=== PATIENT | female | born 2000 | race Caucasian/White ===

== ENCOUNTER 2021-02-27 13:22 | Outpatient (CLI) | payer OTHER, SELFPAY ==
--- NOTE | ~2021-02-27 | US_ITS ---
EXAMINATION: US pelvic complete w TV DATE: 02/27/2021 14:06 INDICATION: Ovarian cyst, abnormal bleeding TECHNIQUE: Multiple transabdominal and endovaginal sonographic images of the pelvis were obtained. COMPARISON: None. FINDINGS: The uterus measures 6.1 x 3.0 x 3.9 cm. The endometrial complex measures 5 mm. The right ov nedra measures 1 x 2.2 x 2.1 cm and contains a 1.2 cm cyst. The left ovary measures 3.1 x 1.9 x 1.9 cm. There is normal vascular flow in the ovaries. There is a small volume of likely physiologic free flu id in the pelvis. IMPRESSION: 1. 1.2 cm right ovarian cyst considered within normal limits for a reproductive age female. Reviewed, dictated and finalized at location [facility]. [facility] [employer]CH[employer]
== END 2021-02-27 13:23 | disposition home or self-care (01) ==
LOC: ANHIMG 13:23
PROVIDERS: PCP Pediatrics; Visit Provider Obstetrics & Gynecology Gynecology
DX: N83.201 Unspecified ovarian cyst, right side (principal); N93.9 Abnormal uterine and vaginal bleeding, unspecified
CPT/HCPCS: 76830; 76856

== ENCOUNTER 2021-09-05 08:28 | Emergency (ER) | payer OTHER, MEDICAID, SELFPAY ==
[2021-09-05 08:40] VITALS: BP 120/57; PULSE 104; RESP 18; TEMP 37.8; O2SAT 99
--- NOTE | 2021-09-05 08:54 | ED.URI ---
HPI - URI/Sore Throat General Stated Complaint: chest pain/sore throat/wiggins Time Seen by Provider: 09/05/21 08:54 Source: patient Mode of arrival: ambulatory Limitations: no limitations History of Present Illness HPI Narrative: 20 yo F presents with c/o nasal congestion, cough, fatigue since yesterday. Tested positive for covid 19 yesterday on home test. Telegraphic Service Dispatcher wants her to have official test at an office and doctors statement . Pt is vaccinated. Approx. 19 wks . Denies CP and SOB. Has vomited a few times past 2 days but is able to keep down some food and fluids. 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 All systems reviewed and negative except as noted above. Related Data Allergies Allergy/AdvReac Type Severity Reaction Status Date / Time No Known Allergies Allergy Unverified 10/28/16 13:12 Review of Systems Review of Systems: CONSTITUTIONAL: Denies fever, chills, or sweats. Reports fatigue. EYES: Denies visual changes, redness, or discharge. ENT: Reports rhinorrhea, congestion. Denies sore throat, or otalgia. CARDIOVASCULAR: Denies chest pain, palpitations, or edema. RESPIRATORY: Reports cough. Denies dyspnea. GASTROINTESTINAL: Denies abdominal pain. Denies nausea, vomiting. GENITOURINARY: Denies dysuria or hematuria. SKIN: Denies rash or itching. MUSCULOSKELETAL: Denies back pain, joint pain, or myalgia. NEUROLOGIC: Denies headache, numbness, or weakness. PSYCHIATRIC: Denies anxiety or depression. All other systems reviewed are negative, except as documented in HPI. PMFSH Comments At time of signature, agree with nursing past medical, surgical, social and family history. There is no relevant family history pertinent to the presenting complaint. Exam Narrative: GENERAL: This is a well-nourished, well-developed patient, in no apparent distress. HEAD: normocephalic, atraumatic. EYES: PERRL. Sclera clear/white. Vision is grossly intact. EARS: External ears normal, auditory canals clear and without drainage, TMs normal without perforation. Hearing grossly intact. NOSE: External nose normal with clear nasal drainage. THROAT: Mucous membranes moist, posterior pharynx clear. NECK: Neck supple, non-tender without lymphadenopathy, masses or thyromegaly. CARDIOVASCULAR: Regular rate and rhythm without murmurs, gallops, or rubs. RESPIRATORY: Clear to auscultation. Breath sounds equal bilaterally. No wheezes, rales, or rhonchi. SKIN: warm, Dry, intact with no suspicious lesions or rash, good texture and turgor. NEURO: awake, alert, and oriented to person, place and time. There were no obvious focal neurologic abnormalities. EXTREMITIES: No joint tenderness, effusion, or edema noted. Course Course Level of Care: Express Care Visit Vital Signs Vital signs: Vital Signs Temperature 37.8 C H 09/05/21 08:40 Pulse Rate 104 H 09/05/21 08:40 Respiratory Rate 18 09/05/21 08:40 Blood Pressure 120/57 L 09/05/21 08:40 Pulse Oximetry 99 09/05/21 08:40 Oxygen Delivery Room Air 09/05/21 08:40 Temperature 37.8 C H 09/05/21 08:40 Pulse Rate 104 H 09/05/21 08:40 Respiratory Rate 18 09/05/21 08:40 Blood Pressure 120/57 L 09/05/21 08:40 Pulse Oximetry 99 09/05/21 08:40 Oxygen Delivery Room Air 09/05/21 08:40 Reviewed MDM - URI/Sore Throat MDM Narrative Medical decision making narrative: Patient is aware of diagnosis, understands and agrees to treatment plan. Anticipatory guidance given. Patient agrees to follow-up as directed and is aware of reasons to seek care at the emergency department. Portions of this record may have been created with voice recognition software Differential Diagnosis Differential diagnosis: Likely upper respiratory infection, sinusitis, viral infection, influenza and other (COVID) Discharge Plan Discharge Clinical Impression: COVID-19 Patient Disposition: Home, Self-Care Condition: Stable Instructions: COVID-19 (Coronavirus Disease 2019) (ED) Addit
== END 2021-09-05 09:20 | disposition home or self-care (01) ==
PROVIDERS: Emergency Provider Nurse Practitioner Family
DX: O98.512 Other viral diseases complicating pregnancy, second trimester (principal); Z3A.19 19 weeks gestation of pregnancy; U07.1 COVID-19
CPT/HCPCS: 87426; 99212; C9803; G0463

== ENCOUNTER 2022-06-18 17:34 | Emergency (ER) | payer OTHER, MEDICAID, SELFPAY ==
[2022-06-18 17:40] VITALS: BP 126/65; PULSE 94; RESP 18; TEMP 37.3; O2SAT 100
--- NOTE | 2022-06-18 17:44 | ED.GENADULT ---
HPI - General Adult General Chief complaint: Urogenital-Female Stated complaint: poss uti Source: patient and RN notes reviewed History of Present Illness HPI narrative: 21 yo F presents to urgent care with complaints of lower abdominal pains, bilateral lower back pains, bilateral flank pain, and dyspareunia. Pt states she has been having these symptoms ever since she had her baby 5 months ago but the last week, her symptoms have exacerbated. Pt states she is unable to sit down without pain. Pt reports some nausea. Pt reports vaginal discharge and foamy urine. Pt was recently treated with Flagyl and Diflucan approximately 2 weeks ago. Denies any vomiting, constipation, dysuria, genital blisters or lesions, diarrhea, chest pain, or SOB. Related Data Allergies Allergy/AdvReac Type Severity Reaction Status Date / Time No Known Allergies Allergy Verified 06/18/22 17:43 Review of Systems Review of Systems: Pertinent positives and pertinent negatives per HPI. PMFSH Comments At the time of my signature, I reviewed and agree with the nursing past medical, surgical, social, and family history. There is no relevant family history pertinent to the patient complaint. Exam Narrative: GENERAL: This is a well-nourished, well-developed patient, in no apparent distress. HEAD: normocephalic, atraumatic. EYES:Sclera clear/white. Vision is grossly intact. EARS: External ears normal, auditory canals clear and without drainage. Hearing grossly intact. NOSE: External nose normal with no obvious nasal discharge, nares without redness, no rhinorrhea. THROAT: Mucous membranes moist, posterior pharynx clear. NECK: Neck supple, non-tender without lymphadenopathy, masses or thyromegaly. CARDIOVASCULAR: Regular rate . RESPIRATORY: Clear to auscultation. Breath sounds equal bilaterally. No wheezes, rales, or rhonchi. GASTROINTESTINAL: Abdomen soft, Tender to mid lower and left lower abdomen. SKIN: warm, intact with no suspicious lesions or rash, good texture and turgor. NEURO: awake, alert, and oriented to person, place and time. There were no obvious focal neurologic abnormalities. Course Course Level of Care: Express Care Visit Vital Signs Vital signs: Vital Signs Temperature 99.2 F 06/18/22 17:40 Pulse Rate 94 06/18/22 17:40 Respiratory Rate 18 06/18/22 17:40 Blood Pressure 126/65 06/18/22 17:40 Pulse Oximetry 100 06/18/22 17:40 Oxygen Delivery Room Air 06/18/22 17:40 Temperature 99.2 F 06/18/22 17:40 Pulse Rate 94 06/18/22 17:40 Respiratory Rate 18 06/18/22 17:40 Blood Pressure 126/65 06/18/22 17:40 Pulse Oximetry 100 06/18/22 17:40 Oxygen Delivery Room Air 06/18/22 17:40 Reviewed Medical Decision Making Vital Signs Vital Signs: Vital Signs Temperature 99.2 F 06/18/22 17:40 Pulse Rate 94 06/18/22 17:40 Respiratory Rate 18 06/18/22 17:40 Blood Pressure 126/65 06/18/22 17:40 Pulse Oximetry 100 06/18/22 17:40 Oxygen Delivery Room Air 06/18/22 17:40 Temperature 99.2 F 06/18/22 17:40 Pulse Rate 94 06/18/22 17:40 Respiratory Rate 18 06/18/22 17:40 Blood Pressure 126/65 06/18/22 17:40 Pulse Oximetry 100 06/18/22 17:40 Oxygen Delivery Room Air 06/18/22 17:40 Lab Data Labs: UCG Bedside Result Negative Reference Range: Negative Urine Glucose Negative Reference Range: Negative Urine Bilirubin Negative Reference Range: Negative Urine Ketone Negative Reference Range: Negative Urine Specific [place] 1.015 Reference Range:1.001-1.035 Urine Blood Negative
== END 2022-06-18 18:21 | disposition home or self-care (01) ==
PROVIDERS: Emergency Provider Nurse Practitioner Family
DX: R10.30 Lower abdominal pain, unspecified (principal); R10.32 Left lower quadrant pain; Z86.16 Personal history of COVID-19
CPT/HCPCS: 81003; 81025; 99212; G0463

== ENCOUNTER 2022-09-09 12:53 | Outpatient (CLI) | payer OTHER, MEDICAID, SELFPAY | END 2022-09-09 12:54 | disposition home or self-care (01) | LOC: ANHBWCAUD 12:54 | DX: R42 Dizziness and giddiness (principal) | CPT/HCPCS: 92557; 92567 ==

== ENCOUNTER 2022-11-22 16:35 | Emergency (ER) | payer OTHER, MEDICAID, SELFPAY ==
--- NOTE | 2022-11-22 16:42 | ED.URI ---
HPI - URI/Sore Throat General Chief Complaint: Upper Respiratory Infection Stated Complaint: congestion/aches/ears Source: patient and RN notes reviewed History of Present Illness HPI Narrative: 21 yo F presents to urgent care with complaints of body aches, bilateral ear pain, and SHETTY that started today. Pt states since she was bringing her daughter in, she would be seen. Denies any fevers, chills, sore throat, chest pain, SOB, N/V/D. Related Data Home Medications Medication Instructions Recorded Confirmed citalopram 20 mg tablet mg 11/22/22 norethindrone 1.5 mg-ethinyl tablet 11/22/22 estradiol 30 mcg(21)/iron 75 mg(7) tablet ( FE .08/12 (28)) Allergies Allergy/AdvReac Type Severity Reaction Status Date / Time No Known Allergies Allergy Verified 06/18/22 17:43 Review of Systems Review of Systems: Pertinent positives and pertinent negatives per HPI. PMFSH Comments At the time of my signature, I reviewed and agree with the nursing past medical, surgical, social, and family history. There is no relevant family history pertinent to the patient complaint. Exam Narrative: GENERAL: This is a well-nourished, well-developed patient, in no apparent distress. HEAD: normocephalic, atraumatic. EYES: Sclera clear/white. Vision is grossly intact. EARS: External ears normal, auditory canals clear and without drainage, TMs normal without perforation. Hearing grossly intact. NOSE: External nose normal with no obvious nasal discharge, nares without redness, no rhinorrhea. THROAT: Mucous membranes moist, posterior pharynx clear. NECK: Neck supple, non-tender without lymphadenopathy, masses or thyromegaly. CARDIOVASCULAR: Regular rate and rhythm without murmurs, gallops, or rubs. RESPIRATORY: Clear to auscultation. Breath sounds equal bilaterally. No wheezes, rales, or rhonchi. SKIN: warm, intact with no suspicious lesions or rash, good texture and turgor. NEURO: awake, alert, and oriented to person, place and time. There were no obvious focal neurologic abnormalities. EXTREMITIES: No clubbing, cyanosis, or edema. No joint tenderness, effusion, or edema noted. BACK: Nontender without deformity or crepitus. No flank tenderness. Course Course Level of Care: Express Care Visit Vital Signs Vital signs: Reviewed MDM - URI/Sore Throat MDM Narrative Medical decision making narrative: Viral illness may last between 7-21 days; antibiotics do not cure viral illness and are NOT recommended at this time. Also, recommend symptomatic treatment includes: rest, fluids, and increase humidity of the air at home. Recommend Acetaminophen as directed on the bottle to reduce fever, pain, headache. Please schedule a follow-up visit with your personal physician for further evaluation and treatment within 3-5days. If your symptoms persist, change or worsen significantly before you can contact your personal physician then please, without delay, go to the emergency department for further evaluation. Differential Diagnosis Differential diagnosis: Likely upper respiratory infection, otitis media and viral infection Critical Care Time Critical Care Time Critical Care Time: No Discharge Plan Discharge Clinical Impression: Viral illness Patient Disposition: Home, Self-Care Condition: Stable Instructions: Viral Syndrome (ED) Additional Instructions: Viral illness may last between 7-21 days; antibiotics do not cure viral illness and are NOT recommended at this time. Also, recommend symptomatic treatment includes: rest, fluids, and increase humidity of the air at home. Recommend Acetaminophen as directed on the bottle to reduce fever, pain, headache. Please schedule a follow-up visit with your personal physician for further evaluation and treatment within 3-5days. If your symptoms persist, change or worsen significantly before you can contact your personal physician then please, without delay, go to the emergency department for fu
[2022-11-22 16:51] VITALS: BP 125/73; PULSE 81; RESP 16; TEMP 36.4; O2SAT 98
== END 2022-11-22 17:10 | disposition home or self-care (01) ==
PROVIDERS: Emergency Provider Nurse Practitioner Family
DX: B34.9 Viral infection, unspecified (principal)
CPT/HCPCS: 99211; G0463

== ENCOUNTER 2024-10-17 17:58 | Emergency (ER) | payer OTHER, SELFPAY ==
--- OUTSIDE RECORDS SUMMARY | 2024-10-17 18:01 | XMS_ITS | Clinical Summary ---
Author Organization [facility] Address [address] [place] [address] Phone Care Team Providers Care Pile Header Name Role Phone Carol AnnStephenie westfall Primary Care Provider Allergies No known active allergies Medications SPRINTEC 28 0.25-35 MG-MCG Tablet 09/28/2017 Active ketorolac (TORADOL) 10 MG Tablet Take 1 Tablet by mouth every 6 hours as needed for Mild or more severe pain. 15 Tablet 06/18/2022 Active carbamide peroxide (Debrox) 6.5 % Solution Place 5 Drops in right ear 2 times daily. 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 Family History Medical History Relation Name Comments Diabetes Father High Cholesterol Father Hypertension Father Chronic Obstructive Pulmonary Disease Mother Relation Name Status Comments Father Alive Mother Alive Social History Tobacco Use Types Packs/Day Years Used Date Smoking Tobacco: Never Smokeless Tobacco: Never Tobacco Cessation:Counseling Given: Not Answered Alcohol Use Standard Drinks/Week Comments No 0 (1 standard drink = 0.6 oz pur e alcohol) Comments No Sex and Gender Information Value Date Recorded Sex Assigned at Not on file Legal Sex Female 10:45 PM CDT Gender Identity Not on file Sexual Orientation Not on file Last Filed Vital Signs Vital Sign Reading Time Taken Comments Blood Pressure 131/63 08/28/2022 11:00 AM CDT Pulse 75 08/28/2022 11:00 AM CDT Temperature 36.3 C (97.3 F) 08/28/2022 9:23 AM CDT Respiratory Rate 15 08/28/2022 11:00 AM CDT Oxygen Saturation 99% 08/28/2022 11:00 AM CDT Inhaled Oxygen Concentration - - Weight 56.7 kg (125 lb) 08/28/2022 9:23 AM CDT Height 160 cm (5' 3) 08/28/2022 9:23 AM CDT Body Mass Index 22.14 08/28/2022 9:23 AM CDT Plan of Treatment Health Maintenance Due Date Last Done Comments Hepatitis C Virus (HCV) Screening 2000 Meningococcal B Immunization (1 of 2 - Standard) 2016 Human Papillomavirus (HPV) Immunization (3 - 3-dose series) 03/29/2019 01/04/2019, 11/11/2017 SARS-COV-2 Immunization ( season) 2023 03/18/2021, 08/31/2020, 08/06/2020 Influenza Immunization (#1) 2024 02/18/2022 Respiratory Syncytial Virus (RSV) Immunization (Adult) (1 - 1-dose 75+ series) 12/13/2075 Hepatitis B Immunization Completed 002, 04/15/2001, 02/12/2001 Pneumococcal Immunization Combined Aged Out 01/21/2002, 06/15/2001, 04/15/2001, Additional history exists No longer eligible based on patient's age to complete this topic Measles Mumps Rubella (MMR) Immunization Discontinued 10/05/2006, 01/21/2002 Polio (IPV) Immunization Discontinued 007, 06/15/2001, 04/15/2001, Additional history exists Varicella Immunization Discontinued 10/05/2006, 2001 DTaP/Tdap/Td Immunization Discontinued 2012, 10/05/2006, 06/07/2002, Additional history exists TdaP Immunization Completed 12/29/2012 Hepatitis A Immunization Discontinued 01/04/2019, 10/15 Meningococcal Immunization (ACWY) Completed 01/04/2019, 11/11/2017 Rotavirus Immunization Aged Out No lo nger eligible based on patient's age to complete this topic Insurance MEDICAID [facility] Care Teams Pile Header Relationship Specialty Start Date End Date Stephenie Rousseau DO [address] [place] [address] [place] [address] PCP - General Family Medicine 08/07/22
--- OUTSIDE RECORDS SUMMARY | 2024-10-17 18:01 | XMS_ITS | Encounter Summary ---
Author Organization [facility] Address [address] [place] [address] Phone Care Team Providers Care Bottle Caser Name Role Phone Jaleel Chaparro MD Unavailable [phone] Ratna Carrillo NP Primary Care Provider [phone] Reason for Visit * Reason Onset Date Comments Appointment 10/10/2024 Encounter Details Date Type Department Care Team (Late st Contact Info) Description 10/10/2024 Telephone [facility] Obstetrics and Gynecology [address] [facility] 7th [address] [place] [address] Maco Monteiro, WILLI Appointment Social History Tobacco Use Types Packs/Day Years Used Date Smoking Tobacco: Every Day Vaping Smokeless Tobacco: Never Alcohol Use Standard Drinks/Week Comments Not Currently 0 (1 standard drink = 0.6 oz pur e alcohol) Social Connection and Isolat ion Panel [NHANES] Answer Date Recorded In a typical week, how many times do you talk on the phone with family, friends, or neighbors? More than three times a week 01/23/2022 How often do you get togethe r with friends or relatives? Twice a week 01/23/2022 How often do you attend chur ch or restorationism services? More than 4 times per year 01/23/2022 Do you belong to any clubs o r organizations such as yazdanism groups, unions, fraternal or athletic groups, or school groups? Yes 01/23/2022 How often do you attend meet ings of the clubs or organizations you belong to? More than 4 times per year 01/23/2022 Are you , , di vorced, , never , or living with a partner? Living with partner 01/23/2022 AUDIT-C Answer Date Recorded Q1: How often do you have a drink containing alc ohol? Monthly or less 07/19/2024 Q2: How many drinks containi ng alcohol do you have on a typical day when you are drinking? 1 or 2 07/19/2024 Q3: How often do you have si x or more drinks on one occasion? Never 07/19/2024 Overall Financial Resource Strain (CARDIA) Answe r Date Recorded How hard is it for you to pa y for the very basics like food, housing, medical care, and heating? Somewhat hard 01/23/2022 PHQ-2 Answer Date Recorded PHQ-2 Total Score (If total score is 3 or more points, staff should administer the PHQ-9) 0 07/25/2024 Hunger Vital Sign Answer Date Recorded Within the past 12 months, y ou worried that your food would run out before you got the money to buy more. Never true 01/24/20 22 Within the past 12 months, t he food you bought just didn't last and you didn't have money to get more. Never true 01/23/2022 PRAPARE - Transportation Answer Date Re corded In the past 12 months, has l ack of transportation kept you from medical appointments or from getting medications? No 01/14 In the past 12 months, has l ack of transportation kept you from meetings, work, or from getting things needed for daily living? No 01/23/2022 Housing Stability Vital Sign Answer John e Recorded In the last 12 months, was t here a time when you were not able to pay the mortgage or rent on time? No 01/23/2022 In the last 12 months, how many places have you lived? 2 01/23/2022 In the last 12 months, was t here a time when you did not have a steady place to sleep or slept in a half-way (including now)? No 01/23/2022 PHQ-9 Answer Date Recorded PHQ-9 Total Score 6 11/17/2023 Personal Safety Answer Date Recorded Have you ever been in or are you currently in a harmful physical or emotional relationship or is someone making you feel afraid or unsafe? 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 Patient seen at urgent care 10/01/24 with testing being wnl per patient. Patient is afebrile. Patient notes some vaginal discharge along with pelvic pain and painful intercourse. Problem visit rescheduled. Reviewed ED precautions such as severe uncontrolled abdominal pain, fever/chills, nausea/vomiting with inability to tolerate oral intake, chest pain, shortness of breath ordizziness/lightheadedness. Pt verbalized understanding. documented in this encounter Plan of Treatment Not on file documented as of this encounter Visit Diagnoses Not on filedocumented in this encounter Care Teams Bottle Caser Relationship Specialty Start Date End Date Ratna Carrillo NP [address] [place] [address] PCP - General Family Medicine 08/25/24 Jaleel Chaparro MD [address] [facility] [facility] [facility] [address], [place] [address] Line Ordering Clinician Obstetrics and Gynecology 01/24/22 documented as of this encounter
--- OUTSIDE RECORDS SUMMARY | 2024-10-17 18:01 | XMS_ITS | Encounter Summary ---
Author Organization [facility] Healthcare Address [address] [place] [address] Care Team Providers Care Lan Specialist Name Role Phone Jaleel Chaparro MD Unavailable [phone] Ratna Carrillo NP Primary Care Provider [phone] Encounter Details Date Type Department Care Team (Latest Contact Info) Description 10/01/2024 Results Follow-Up [facility] [place] [address] [place] [address] Marianne Fischer NP [address] [place] [address] Vaginitis panel Vaginal, Urine culture Urine, clean voided, N. gonorrhoeae/C. trachomatis Amplification Urine Social History Tobacco Use Types Packs/Day Years [...] 01/23/2022 How often do you attend chur or mandaeism services? More than 4 times per year 01/23/2022 Do you belong to any clubs o r organizations such as faith groups, unions, fraternal or athletic groups, or [...] place to sleep or slept in a mcfp (including now)? 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 * Result Encounter Note - Evin Heredia MA - 10/01/2024 5:44 PM CDT Left a voicemail to return call. * Result Encounter Note - Marianne Fischer NP - 10/01/2024 4:19 PM CDT Please notify patient of normal results. She should monitor symptoms and f/u with REHABILITATION DIRECTOR next week. documented in this encounter Plan of Treatment Not on file documented as of this encounter Visit Diagnoses Not on filedocumented in this encounter Care Teams Lan Specialist Relationship Specialty Start Date End Date Ratna Carrillo NP [address] [place] [address] PCP - General Family Medicine 08/25/24 Jaleel Chaparro MD [address], [place] [address] Insurance Underwriting Assistant Obstetrics and Gynecology 01/24/22 documented as of this encounter
--- OUTSIDE RECORDS SUMMARY | 2024-10-17 18:01 | XMS_ITS | Clinical Summary ---
Author Organization [facility] Address [address] [place] [address] Care Team Providers [employer] Name Role Phone Jaleel Chaparro MD Unavailable [phone] Ratna Carrillo NP Primary Care Provider [phone] Allergies Active Allergy Reactions Criticality Noted Date Comments Fish Containing Products Shortness of breath High Peanut Hives Medium 11/26/2021 Medications sertraline (ZOLOFT) 100 mg tablet Take 1 tablet (100 mg total) by mouth daily 90 tablet 1 5 Active drospirenone, contraceptive, (SLYND) tablet tablet Take 1 each (4 mg total) by mouth daily 28 tablet 11 5 Active amoxicillin-cl avulanate (AUGMENTIN) 875-125 mg per tabletIndicati ons:Skin/Soft Tissue Infection Take 1 tablet (875 mg of amoxicillin total) by mouth 2 (two) times a day for 10 days 20 tablet 5 10/24/19 25 Active fluconazole (DIFLUCAN) 150 mg tabletIndicati ons:Bhavna vaginitis 1 every 3 days for 3 doses. 3 tablet 1 5 10/15/19 25 Discontin ued(Patie nt Reported) mupirocin (BACTROBAN) 2 % ointment Apply topically 3 (three) times a day 22 g 5 10/15/19 25 Discontin ued(Patie nt Reported) Active Problems Problem Noted Date Diagnosed Date Migraine with visual aura 08/06/2024 Folliculitis 07/10/2024 Assessment & Plan (07/25/2024 9:13 PM CDT): Folliculitis has mostly resolved, but she has a remaining spot on right outer arm that is a little larger, salmon colored, dime size and is itching. Appears more fungus. Rx nystatin/triamcinolone cream topically Cyst of right ovary 06/28/2024 Assessment & Plan (07/25/2024 9:14 PM CDT): Following with [facility] at [facility] Assessment & Plan (07/10/2024 10:18 PM CDT): Has plan with follow up with [facility] [facility] in [facility] Abdominal pain 05/18/2024 Breast tenderness in female 12/20/2023 Assessment & Plan (12/20/2023 6:22 PM CDT): Exam negative. Pain is more chronic. Referred back to Gynecology. I would like their opinion before ordering any kind of imaging Moderate episode of recurrent major depressive d isorder 11/17/2023 Assessment & Plan (07/25/2024 9:12 PM CDT): Improved. Continue sertraline 50mg daily Assessment & Plan (12/20/2023 6:21 PM CDT): Improved. Continue sertraline 100 mg once daily. May follow-up 6 months. Assessment & Plan (11/17/2023 8:42 PM CDT): Discussed starting a medication and pt is agreeable. Will start sertraline . Discussed starting dose and titration to full dose, possible SE and time frame for expected results. Call if any suicidal thoughts or questions concerning SE. Do not abruptly stop medication without calling office. Follow up in 3-4 weeks for recheck and continuation of medications. Moderate persistent asthma without complication 11/17/2023 Assessment & Plan (11/17/2023 8:32 PM CDT): Stable. Continue symbicort. Albuterol prn Anxiety 11/17/2023 Assessment & Plan (11/17/2023 8:34 PM CDT): Discussed starting a medication and pt is agreeable. Will start sertraline . Discussed starting dose and titration to full dose, possible SE and time frame for expected results. Call if any suicidal thoughts or questions concerning SE. Do not abruptly stop medication without calling office. Follow up in 3-4 weeks for recheck and continuation of medications. Hypoglycemia 11/17/2023 Assessment & Plan (11/17/2023 8:45 PM CDT): Discussed higher protein, lower carb diet. Will check labs. R/o underlying condition. Have her f/u in 1 month for recheck and physical. Patellar tendinitis of both knees 05/01/2023 History of prior with IUGR Pelvic and perineal pain 10/29/2020 Overview (10/29/2020): Added automatically from request for surgery [id number] Resolved Problems Problem Noted Date Diagnosed Date Resolved Date Hospital discharge follow-up 07/10/2024 07/25/2024 Assessment & Plan (07/10/2024 10:18 PM CDT): I have reviewed patient's admission records and discharge summary. Discussed relevant follow up testing and specialty follow-up needed. Referrals placed as needed. Will have patient follow up as as scheduled with [employer]: Recurrent major depression 02/25/2022 1 04/28/2021 depression 02/25/20222023 IUGR (intrauterine growth re striction) affecting care of mother, third trimester, not applicable or unspecified fetus 01/22/202202/13 Poor growth affecting management of mother in third trimester 01/17/2022 02/25/2022 Overview (01/17/2022): 01/17/22 ultrasound: EFW 5% and AC 3%. Low-lying placenta 09/17/2021 Overview (12/02/2021): 4 mm from internal os, posterior, on 18 week sono. Resolved on 11/21/2021 sono. History of COVID-19 09/17/2021 11/17/19 24 Overview (09/17/2021): August, while . Vitamin D deficiency 07/24/2021 022 Hemorrhagic cyst of left ovary 10/24/2020 01/03/2022 Overview (10/24/2020): Possibly slightly exophytic, possibility of some chronic cyst bleeding in pelvis which could explain pain. Discussed is smaller and should resolve. Pain in toe of right foot 10/16/2017 Subungual exostosis 10/16/2017 11/17/19 24 Encounters Date Type Department Care Team Description 10/13/[address] [place] [phone] Nancy Fitzgerald NP 10/10/2024 Telephone [facility] Obstetrics and Gynecology [address] [facility] Outpatient Health 7th Floor [address] [place] [phone] Maco Monteiro RN Appointment 10/03/2024 Telephone [facility] Obstetrics and Gynecology [address] [facility] Outpatient [facility] 7th Floor [address] [place] [phone] Nancy Vargas, RN Pelvic Pain 10/01/2024 1:59 PM CDT - 10/01/2024 11:59 PM CDT Hospital Encounter [address] [id number] Lower abdominal pain Discharge Disposition: Discharge to home or self care 10/01/2024 11:30 AM CDT Office Visit [facility] [place] [address] [place] [phone] Marianne Fischer NP Lower abdominal pain (Primary Dx) 10/01/2024 Results Follow-Up [facility] Medical [facility] [place] [address] [place] [phone] Marianne Fischer NP Vaginitis panel Vaginal, Urine culture Urine, clean voided, N. gonorrhoeae/C. trachomatis Amplification Urine 09/26/2024 Telephone [facility] [address] [facility] [address] [place] [phone] Lexi Kennedy MA Scheduling Appointments 08/05/2024 1:00 PM CDT Office Visit [facility] Obstetrics and Gynecology [address] [facility] 7th Floor [address] [place] [phone] Kaylin Ellsworth MD Cyst of right ovary (Primary Dx); Abdominal pain; Pelvic and perineal pain; Pelvic floor dysfunction; Dyspareunia due to medical condition in female; Bhavna vaginitis; Migraine with visual aura 08/05/2024 11:07 AM CDT - 08/05/2024 11:59 PM CDT Hospital Encounter [facility] - Ultrasound [address] [facility], 7th Floor, [address] [place] [address] Cyst of right ovary; Pelvic and perineal pain Discharge Disposition: Discharge to home or self care 08/02/2024 5:30 PM CDT Office Visit [facility] Care at [address] [place] [phone] Georgiana Ware NP Rash (Primary Dx) 07/27/2024 11:00 AM CDT Lab [address] Fatigue, unspecified type 07/27/2024 Results Follow-Up [facility] Primary Care at [address] [phone] Ratna Carrillo NP Thyroid Function [place], CBC with auto differential, Iron profile w/ IBC, Differential, auto 07/25/2024 3:30 PM CDT Office Visit [facility] Primary Care at [address] [phone] Ratna Carrillo NP Fatigue, unspecified type (Primary Dx); Moderate episode of recurrent major depressive disorder (HCC); Folliculitis; Cyst of right ovary 07/19/2024 11:34 AM CDT - 07/19/2024 11:59 PM CDT Hospital Encounter [facility] [address] [place] [address] Pelvic and perineal pain Discharge Disposition: Discharge to home or self care 07/19/2024 8:00 AM CDT Office Visit [facility] Obstetrics and Gynecology [address] [facility] Outpatient Health 7th Floor [address] [place] [address] Kaylin Ellsworth MD Cyst of right ovary (Primary Dx); Pelvic and perineal pain; Diarrhea, unspecified type; Abdominal pain; Pelvic floor dysfunction; Pelvic inflammatory disease (PID) 07/19/2024 Orders Only [address] [phone] Kaylin Ellsworth MD 07/19/2024 Telephone [facility] Obstetrics and Gynecology [address] [facility] Outpatient Health 7th Floor [address] [place] [address] Leanne Smiley RN from Last 3 Months Immunizations Immunization Administration Dates Next Due DTaP 10/05/2006, 3,06/15/2001,04/15,02/12/2001 HPV9 01/04/2019,11/11/2017 Hep A, Pediatric 01/04/2019,11/11/2017 Hep B / HiB 01/21/2002,04/15/2001,02/12/2001 IPV 10/05/2006, 2,04/15/2001,02/12 Influenza, Quadrivalent, Spl it, Preservative Free, Intramuscular 12/30/2022,02/18/2022 Influenza, Trivalent, Recomb inant, Egg Free, Preservative Free, Antibiotic Free, IM (FLUBLOK) 02/01/2024 Influenza, Unspecified 12/16/2023(Deferr ed: Patient Refused),11/17/2023(Deferred: Patient Refused),03/16/2023(Deferred: Patient Refused) MMR 10/05/2006,01/21/2002 Meningococcal Conjugate (Menveo) 01/04/2019,10/15 Pneumococcal Conjugate 7-Valent 01/22/20 02,06/15/2001,04/15/2001,02/12 Tdap 12/29/2012 Varicella 10/05/2006,01/21/2002 Medical History Medical History Date Comments Ovarian cyst Epistaxis Asthma Depression Anxiety Infection Family History Medical History Relation Name Comments No Known Problems Brother Asthma Father Javier Diabetes Father Javier Hyperlipidemia Father Javier Diabetes Maternal Grandfather Chang Heart disease Maternal Grandfather Chang Hyperlipidemia Maternal Grandfather Chang Hypertension Maternal Grandfather Chang Diabetes Maternal Grandmother Sally Heart disease Maternal Grandmother Sally Hyperlipidemia Maternal Grandmother Sally Hypertension Maternal Grandmother Sally COPD Mother Brenda Pedraza Diabetes Mother Brenda Pedraza Hypertension Mother Brenda Pedraza Diabetes Paternal Grandfather Fabio Heart disease Paternal Grandfather Fabio Hyperlipidemia Paternal Grandfather Fabio Hypertension Paternal Grandfather Fabio Kidney disease Paternal Grandfather Fabio Lung cancer Paternal Grandfather Fabio Diabetes Paternal Grandmother Pamela Heart disease Paternal Grandmother Pamela Hyperlipidemia Paternal Grandmother Pamela Hypertension Paternal Grandmother Pamela Relation Name Status Comments Brother Father Javier Alive Maternal Grandfather Chang Maternal Grandmother Sally Mother Brenda Pedraza Alive Paternal Grandfather Fabio Paternal Grandmother Pamela Social History Tobacco Use Types Packs/Day Years Used Date Smoking Tobacco: Every Day Vaping Smokeless Tobacco: Never Tobacco Cessation:Ready to Q uit: Not Asked; Counseling Given: Not Answered Alcohol Use Standard Drinks/Week Comments Not Currently [...] How often do you attend chur or tenriism services? More than 4 times per year 01/23/2022 Do you belong to any clubs o r organizations such as adventism groups, unions, fraternal or athletic groups, or [...] place to sleep or slept in a snf (including now)? No 01/23/2022 PHQ-9 Answer Date [...] on file Legal Sex Female 10:57 PM TIRE [employer] Gender Identity Not on file Sexual Orientation Not on file Obstetrics History Para Term AB IAB SAB Ectopic Multiple Livin g Live Births 1 1 1 0 0 0 0 0 0 1 1 Date Outcome GA Total Labor Labor/2nd/3rd Weight Sex Type Anes PTL Kathi A1 A5 Name Clin 2021 Term 37w 1d 2h 14m 1h 30m/0h 37m/0h 07m 2.358 kg (5 lb 3.2 oz) F Vag-S pont Epidur al N Livin g 8 9 MCHAT DENISSE,G JORGE Chaparro , Jaleel Park MD Complications:Precipitous La bor (<3 hours) Delivery Location:[facility] ([facility]) Last Filed Vital Signs Vital Sign Reading Time Taken Comments Blood Pressure 110/62 10/01/2024 11:12 AM CDT Pulse 91 10/01/2024 11:12 AM CDT Temperature 36.6 C (97.9 F) 10/01/2024 11:12 AM CDT Respiratory Rate 16 10/01/2024 11:12 AM CDT Oxygen Saturation 99% 10/01/2024 11:12 AM CDT Inhaled Oxygen Concentration - - Weight 49.9 kg (110 lb) 10/01/2024 11:12 AM CDT Height 160 cm (5' 3) 10/01/2024 11:12 AM CDT Body Mass Index 19.49 10/01/2024 11:12 AM CDT Plan of Treatment Health Maintenance Due Date Last Done Comments Pneumococcal vaccine <65 (1 of 1 - PPSV23) 2006 01/21/2002, 06/15/2001, 04/15/2001, Additional history exists Meningococcal B Vaccine (1 o f 2 - Standard) 2016 Regular Well Visit/Exam 18-64 2018 HPV Vaccines (3 - 3-dose series) 03/29/2019 01/05/20 19, 11/11/2017 DTaP/Tdap/Td Vaccine (7 - Td or Tdap) 12/29/2022 12/29/2012, 10/05/2006, 06/07/2002, Additional history exists Cervical Cancer Screening 02/25/2023 02/25/2022 Covid-19 Vaccine (4 - 2023-2 5 season) 2023 03/18/2021, 08/31/2020, 08/06/2020 Influenza Vaccine (#1) 2024 , 12/30/2022, 02/18/2022 Depression Screening 07/25/2025 07/25/2024, 12/16/2023, 11/17/2023, Additional history exists Chlamydia and Gonorrhea (GC/ CT) Screening 10/01/2025 10/01/2024, 07/01/2024, 06/17/2024, Additional history exists Hepatitis B Screening Completed 01/21/2002 , 04/15/2001, 02/12/2001 Varicella Vaccines Completed 10/05/2006, 01/21/2002 Hepatitis C Screening Completed 07/18/2021 Procedures Procedure Name Priority Date/Time Associated Diagnosis Comments VAGINITIS PANEL Routine 10/01/2024 2:19 PM CDT Lower abdominal pain N. GONORRHOEAE/C. TRACHOMATIS AMPLIFICATION Routine 10/01/2024 2:19 PM CDT Lower abdominal pain URINE CULTURE Routine 10/01/2024 2:19 PM CDT Lower abdominal pain POCT URINALYSIS DIPSTICK Routine 10/01/2024 11:08 AM CDT Lower abdominal pain US PELVIS COMPLETE Schedule Routine, Read Routine (OP Routine) 08/05/2024 11:07 AM CDT Cyst of right ovary Pelvic and perineal pain DIFFERENTIAL AUTO Routine 07/27/2024 11: 03 AM CDT Fatigue, unspecified type IRON PROFILE W/ IBC Routine 07/27/2024 1 1:03 AM CDT Fatigue, unspecified type CBC WITH AUTO DIFFERENTIAL Routine 07/27/2024 11:03 AM CDT Fatigue, unspecified type THYROID FUNCTION CASCADE Routine 07/27/2024 11:03 AM CDT Fatigue, unspecified type INFECTION PREVENTION VRE CULTURE Routine 07/19/2024 12:15 PM CDT PAP WITH REFLEX TO HIGH RISK HPV Routine 02/25/2022 9:11 AM TIRE BUFFER Encounter for visit HEPATITIS C ANTIBODY Routine 07/18/2021 10:36 AM CDT Encounter for supervision of normal first in first trimester 10 weeks gestation of from Last 3 Months or Most Recently Relevant to Health Maintenance Results * N. gonorrhoeae/C. trachomatis Amplification Urine (10/01/2024 2:19 PM CDT) C. trachomatis Not Detected [facility] Comment:Testing performed by : [facility], [address] [place] [address], [place]., [address] N. gonorrhoeae Not Detected [facility] Comment: Interpretive Data This assay detects Chlamydia trachomatis and Neisseria gonorrhoeae by nucleic acid amplification testing (NAAT). This assay has been cleared by the [place] Food and Drug administration. The performance characteristics of this test have been verified by the [facility] Molecular Infectious Disease laboratory. The performance characteristics of this test have not been evaluated in individuals less than 14 years of age. Current Interpretive Data was last revised on 2023. Testing performed by: [facility], [address] [facility] [place]., [address] Urine (None) 10/01/2024 2:19 PM CDT 10/02/2024 12:22 AM CDT us Marianne Fischer NP LAB MICROBIOLOGY - [facility] AL ORDERABLES Final Result [facility] [address] Department [place] [address] [facility] * Vaginitis panel Vaginal (10/01/2024 2:19 PM CDT) Bacterial Vaginosis Not Detected Not Detected Comment:A negative result do es not preclude a possible infection. Results should be considered in conjunction with clinical presentation to determine the disease status. Bhavna group Not Detected Not Detected [facility] Bhavna glabrata/ krusei Not Detected Not Detected [facility] Trichomonas DNA Not Detected Not Detected [facility] Vaginal 10/01/2024 2:19 PM CDT 10/01/2024 2:59 PM CDT Narrative [facility] - 10/01/2024 4:12 PM CDT The [employer] Xpert Xpress MVP test detects DNA targets from anaerobic bacteria associated with bacterial vaginosis, Bhavna species associated with vulvovaginal candidiasis, and Trichomonas vaginalis by nucleic acid amplification testing (NAAT). Results should be interpreted in conjunction with other clinical data. This test cannot be used to assess therapeutic success or failure because target nucleic acids may persist following antimicrobial therapy. This test has been cleared by the [place] Food and Drug Administration to aid in the diagnosis of vaginal infections in symptomatic women ages 14 and older. The performance characteristics of this test have been verified by the [facility] Laboratory. Marianne Fischer NP LAB MICROBIOLOGY - [facility] ORDERABLES Final Result [facility] [address] Department [place] [address] * Urine culture Urine, clean voided (10/01/2024 2:19 PM CDT) Report Final Report: Less than 100,000 colonies/mL (clinically insignificant growth based on current clinical standards) Comment:Testing performed by : [facility], [address] [facility], [place]., [address] Organism (CLINICALLY INSIGNIFICANT GROWTH [facility] Urine, clean voided 10/01/2024 2:19 PM CDT 10/01/2024 4:11 PM CDT Narrative [facility] - 10/02/2024 4:56 PM CDT Testing performed by [facility] Microbiology Laboratory ([phone]) Marianne Fischer NP LAB MICROBIOLOGY - GENER AL ORDERABLES Final Result [facility] [address] Department [place] [address] * (ABNORMAL) POCT urinalysis dipstick (10/01/2024 11:08 AM CDT) Color, Urine, POC Yellow Clarity, ur, POC Clear Clear Glucose, ur, POC Negative Negative Bilirubin, ur, POC Negative Negative Ketones, ur, POC Negative Negative Specific [place], POC 1.020 1.003 - 1.030 Blood, ur, POC Negative Negative pH, ur, POC 8.5(A) 5.0 - 8.0 Protein, ur, POC Negative Negative Urobilinogen, urine, POC 0.2 0.2 - 1.0 mg/dL Nitrite, ur, POC Negative Negative Leukocytes, ur, POC Negative Negative Lot Number [id number] Urine 10/01/2024 11:0 8 AM CDT Marianne Fischer NP POINT OF CARE TEST ORDER JESSICA Final Result * US Pelvis Complete (08/05/2024 11:07 AM CDT) Cul de Sac Free fluid visualized [facility] Endometrial Thickness 3.6 mm&millim eters [facility] Anatomical Region Laterality Modality Pelvis N/A Ultrasound 08/05/2024 11:0 8 AM CDT Impressions 08/06/2024 7:56 PM CDT 1. Uterus normal in size and morphology. No endometrial or myometrial focal abnormalities. 2. Left ovary contains a complex cyst measuring 33 mm in mean diameter and with evidence of retracted clot. The cyst is unilocular and without any internal blood flow. SOnographic characteristics are most consistent with a hemorrhagic cyst (O-RADS 2). 3. Normal right ovary. 4. Small amount of anechoic free fluid int eh posterior cul de sac. Narrative Procedure Note Tiffany Eduardo MD - 08/06/2024 IMPRESSION: 1. Uterus normal in size and morphology. No endometrial or myometrialfocal abnormalities. 2. Left ovary contains a complex cyst measuring 33 mm in mean diameter andwith evidence of retracted clot. The cyst is unilocular and without anyinternal blood flow. SOnographic characteristics are most consistent witha hemorrhagic cyst (O- RADS 2). 3. Normal right ovary. 4. Small amount of anechoic free fluid int eh posterior cul de sac. us Kaylin Kalina Ellsworth MD IMG US PROCEDU RES Final Result * Differential, auto (07/27/2024 11:03 AM CDT) Neutrophil abs 1.96 1.50 - 6.50 K/cumm Imm gran abs 0.01 0.00 - 0.10 K/cumm [facility] Lymphocyte abs 1.91 0.80 - 3.30 K/cumm [facility] Monocyte abs 0.44 0.20 - 0.80 K/cumm [facility] Eosinophil abs 0.04 0.00 - 0.50 K/cumm [facility] Basophil abs 0.04 0.00 - 0.10 K/cumm [facility] Neutrophil pct 44.6 % [facility] Comment: Interpretive Data Percent cell count reference ranges are not reported, since discordance with absolute values may lead to misinterpretation of CBC data. Current Interpretive Data was last revised on 2017. Imm gran pct 0.2 % [facility] Comment: Interpretive Data Percent cell count reference ranges are not reported, since discordance with absolute values may lead to misinterpretation of CBC data. Current Interpretive Data was last revised on 2017. Lymphocyte pct 43.4 % [facility] Comment: Interpretive Data Percent cell count reference ranges are not reported, since discordance with absolute values may lead to misinterpretation of CBC data. Current Interpretive Data was last revised on 2017. Monocyte pct 10.0 % [facility] Comment: Interpretive Data Percent cell count reference ranges are not reported, since discordance with absolute values may lead to misinterpretation of CBC data. Current Interpretive Data was last revised on 2017. Eosinophil pct 0.9 % [facility] Comment: Interpretive Data Percent cell count reference ranges are not reported, since discordance with absolute values may lead to misinterpretation of CBC data. Current Interpretive Data was last revised on 2017. Basophil pct 0.9 % [facility] Comment: Interpretive Data Percent cell count reference ranges are not reported, since discordance with absolute values may lead to misinterpretation of CBC data. Current Interpretive Data was last revised on 2017. Blood 07/27/2024 11:0 3 AM CDT 07/27/2024 12:53 PM CDT Ratna Carrillo [facility] LAB BLOOD ORDERABLES Final Re sult [facility] [address] [facility] [place] [address] * Thyroid Function [place] (07/27/2024 11:03 AM CDT) TSH 0.53 0.30 - 4.20 mcIUnit/mL Blood 07/27/2024 11:0 3 AM CDT 07/27/2024 12:53 PM CDT Ratna Carrillo [employer] [employer] BLOOD ORDERABLES Final Re sult [facility] [address] [facility] [place] [address] * Iron profile w/ IBC (07/27/2024 11:03 AM CDT) Iron 106 35 - 145 mcg/dL TIBC 253 250 - 400 mcg/dL [facility] Transferrin saturation 42 20 - 50 % [facility] Blood 07/27/2024 11:0 3 AM CDT 07/27/2024 12:53 PM CDT Ratna Carrillo NP LAB BLOOD ORDERABLES Final Re sult [facility] ([facility]) [address] [facility] [place] [address] * CBC with auto differential (07/27/2024 11:03 AM CDT) WBC 4.40 3.80 - 9.90 K/cumm Hgb 12.1 11.9 - 15.5 g/dL [facility] Hct 36.5 35.6 - 45.5 % [facility] Plt 196 150 - 400 K/cumm [facility] MPV 11.6 9.1 - 12.3 fL [facility] RBC 3.92 3.90 - 5.20 M/cumm [facility] MCV 93.1 81.3 - 96.4 fL [facility] MCH 30.9 27.1 - 33.3 pg [facility] MCHC 33.2 32.3 - 35.7 g/dL [facility] RDW CV 12.3 11.1 - 14.9 % [facility] RDW SD 41.6 35.7 - 48.1 fL [facility] NRBC abs 0.00 0.00 - 0.01 K/cumm [facility] Blood 07/27/2024 11:0 3 AM CDT 07/27/2024 12:53 PM CDT Ratna Carrillo NP LAB BLOOD ORDERABLES Final Re sult [facility] [address] [facility] [place] [address] * Infection Prevention VRE Culture Stool (07/19/2024 12:15 PM CDT) Report Final Report: Negative Comment:Testing performed by : [facility], [address] [facility], [place] [address] Stool 07/19/2024 12:1 5 PM CDT 07/20/2024 1:32 AM CDT Narrative TRACIE JONES ([place]) - 07/22/2024 7:06 AM CDT Specimen received in a sterile container. Surveillance culture for Infection Prevention purposes only; results indicate colonization, not infection requiring treatment. Testing performed by [facility] ([phone]). us Kaylin Ellsworth MD LAB MICROBIOLO GY - GENERAL ORDERABLES Final Result TRACIE KAREN ([place]) 1 [facility] [place] [address] * Pap with reflex to High Risk HPV (02/25/2022 9:11 AM TIRE BUFFER) CLINICAL INFORMATION: Jose Rafael Ellis Comment: LMP Jose Rafael Ellis Comment:RECENT Previous Pap Jose Rafael Ellis Comment:NONE GIVEN Prev. Bx Jose Rafael Ellis Comment:NONE GIVEN SOURCE: Jose Rafael Ellis Comment:Cervix, Endocervix Pap, specimen adequacy Jose Rafael Ellis Comment: Satisfactory for evaluation. Endocervical/transformation zone component present. HPV interp Jose Rafael Ellis Comment:Negative for intraep ithelial lesion or malignancy. COMMENTS Jose Rafael Ellis Comment: This Pap test has been evaluated with computer assisted technology. Apartment Leasing Specialist Clint Batista Comment: MLO, CT(ASCP) CT screening location: [place] [address] [address] [place] [address] Comment Jose Rafael Ellis Comment: EXPLANATORY NOTE: The Pap is a screening test for cervical cancer. It is not a diagnostic test and is subject to false negative and false positive results. It is most reliable when a satisfactory sample, regularly obtained, is submitted with relevant clinical findings and history, and when the Pap result is evaluated along with historic and current clinical information. Thin prep (None) 02/25/2022 9:11 AM TIRE BUFFER 02/26/2022 5:36 AM TIRE BUFFER Jaleel Chaparro MD LAB CYTOLOGY ORDERABLES Fi nal Result [facility] [address] [place] [address] * Hepatitis C antibody (07/18/2021 10:36 AM CDT) Hep C Ab Nonreactive Nonreactive RADHAMESPALMIRA JONES ([place]) Comment: Interpretive Data Nonreactive: Antibodies to HCV not detected. Does NOT exclude the possibility of recent exposure to HCV. Equivocal: Equivocal for HCV antibodies. Supplemental molecular testing will be automatically performed to determine infection status in accordance with current CDC screening recommendations. Reactive: Positive for HCV antibodies. This may represent current or past HCV infection. Supplemental molecular testing will be automatically performed to determine current infection status in accordance with current CDC screening recommendations. Interpretive data was last revised on 2019. Testing performed by: [facility], [address] [place] [address]., [phone] Blood 07/18/2021 10:3 6 AM CDT 07/18/2021 2:48 PM CDT us Karen Arce NP LAB MICROBIOLOGY - GENERA L ORDERABLES Final Result Performing Organization Address City/[facility]/ZIP Co de Phone Number TRACIE KAREN ([place]) 1 [facility] [place] [address] from Last 3 Months or Most Recently Relevant to Health Maintenance Insurance [facility] EM[employer]EE [employer]ALTH PLANS Address: [facility] [address] [place] [address] [facility] CHOICE PLUS [facility] CHOICE PLUS [employer] Address: [facility] [address] [place] [address] Advance Directives For more information, please contact: [phone] * Full Code (Latest Code Status on File) Date Activated Date Inactivated Comments 07/02/2024 4:48 AM 07/04/2024 7:19 PM * Full Code Date Activated Date Inactivated Comments 01/22/2022 6:52 AM 01/24/2022 5:24 PM Full CPR in case of cardiopulmonary arrest Care Teams [employer] Relationship Specialty Start Date End Date Ratna Carrillo NP [address] [facility] [address] [place] [address] PCP - General Family Medicine 08/25/24 Jaleel Chaparro MD [address] [facility] [address], [place] [address] Nutrition Professor Obstetrics and Gynecology 01/24/22
--- OUTSIDE RECORDS SUMMARY | 2024-10-17 18:01 | XMS_ITS | Referral Summary ---
Author Organization [facility] Address 1 [place] [address] Care Team Providers Care Recreation Facility Manager Name Role Phone Jaleel Chaparro MD Unavailable [phone] Ratna Carrillo NP Primary Care Provider [phone] Encounters Date Type Department Care Team Description 10/13/2024 Telephone [facility] [address] [facility] [address] [place] [address] Nancy Fitzgerald NP 10/10/2024 Telephone [facility] [address] [facility] Outpatient [facility] [place] 7th Floor [address] [place] [address] Maco Monteiro RN Appointment 10/03/2024 Telephone [facility] [address] [facility] Outpatient [facility] [place] 7th Floor [address] [place] [address] Nancy Vargas RN Pelvic Pain 10/01/2024 Results Follow-Up [facility] [place] [address] [place] [address] Marianne Fischer NP Vaginitis panel Vaginal, Urine culture Urine, clean voided, N. gonorrhoeae/C. trachomatis Amplification Urine 10/01/2024 1:59 PM CDT - 10/01/2024 11:59 PM CDT Hospital Encounter [address] [address] Lower abdominal pain Discharge Disposition: Discharge to home or self care 10/01/2024 11:30 AM CDT Office Visit [facility] [place] [address] [place] [address] Marianne Fischer NP Lower abdominal pain (Primary Dx) 09/26/2024 Telephone [facility] [address] [facility] [address] [place] [address] Lexi Kennedy MA Scheduling Appointments 08/05/2024 1:00 PM CDT Office Visit [facility] [address] [facility] 7th Floor [address] [place] [address] Kaylin Ellsworth MD Cyst of right ovary (Primary Dx); Abdominal pain; Pelvic and perineal pain; Pelvic floor dysfunction; Dyspareunia due to medical condition in female; Bhavna vaginitis; Migraine with visual aura 08/05/2024 11:07 AM CDT - 08/05/2024 11:59 PM CDT Hospital Encounter [facility] Outpatient [facility] [place] - Ultrasound [address] [facility], 7th Floor, [address] [place], [place] [id number] Cyst of right ovary; Pelvic and perineal pain Discharge Disposition: Discharge to home or self care 08/02/2024 5:30 PM CDT Office Visit [facility] at [address] [place] [address] Georgiana Ware NP Rash (Primary Dx) 07/27/2024 Results Follow-Up [facility] at [address] [address] Ratna Carrillo NP Thyroid Function Chino, CBC with auto differential, Iron profile w/ IBC, Differential, auto 07/27/2024 11:00 AM CDT Lab [address] Fatigue, unspecified type 07/25/2024 3:30 PM CDT Office Visit [facility] Primary Care at [address] [address] Ratna Carrillo NP Fatigue, unspecified type (Primary Dx); Moderate episode of recurrent major depressive disorder (HCC); Folliculitis; Cyst of right ovary 07/19/2024 Orders Only [facility] 1 [place] [address] Kaylin Ellsworth MD 07/19/2024 11:34 AM CDT - 07/19/2024 11:59 PM CDT Hospital Encounter [facility] [address] [place] [address] Pelvic and perineal pain Discharge Disposition: Discharge to home or self care 07/19/2024 Telephone [facility] 7th Floor [address] [place] [address] Leanne Smiley RN 07/19/2024 8:00 AM CDT Office [facility] [address] [place] [address] 7th Floor [address] [place] [address] Kaylin Ellsworth MD Cyst of right ovary (Primary Dx); Pelvic and perineal pain; Diarrhea, unspecified type; Abdominal pain; Pelvic floor dysfunction; Pelvic inflammatory disease (PID) from Last 3 Months Allergies Active Allergy Reactions Criticality Noted Date [...] Plan (07/25/2024 9:14 PM CDT): Following with Truck Jumper at [facility] Assessment & Plan (07/10/2024 10:18 PM CDT): Has plan with follow up with PERSONNEL TRAINING [facility] Abdominal pain 05/18/2024 Breast tenderness in female [...] (10/29/2020): Added automatically from request for surgery [id number] Resolved Problems Problem Noted Date Diagnosed Date Resolved Date Hospital discharge follow-up 07/10/2024 07/25/2024 Assessment & Plan (07/10/2024 10:18 PM CDT): I have reviewed patient's admission records and discharge summary. Discussed relevant follow up testing and specialty follow-up needed. Referrals placed as needed. Will have patient follow up as as scheduled with AUTOPSY PATHOLOGIST: Recurrent major depression 02/25/2022 1 04/28/2021 depression [...] foot 10/16/2017 Subungual exostosis 10/16/2017 11/17/19 24 Immunizations Immunization Administration Dates Next Due DTaP [...] 7-Valent 01/22/20 02,06/15/2001,04/15/2001,02/12 Tdap 12/29/2012 Varicella 10/05/2006,01/21/2002 Social History Tobacco Use Types Packs/Day Years [...] How often do you attend chur or episcopal services? More than 4 times per year 01/23/2022 Do you belong to any clubs o r organizations such as islam groups, unions, fraternal or athletic groups, or [...] place to sleep or slept in a residential (including now)? No 01/23/2022 PHQ-9 Answer Date [...] on file Legal Sex Female 10:57 PM MASONRY INSTRUCTOR Gender Identity Not on file Sexual Orientation [...] 10/01/2024 11:12 AM CDT Plan of Treatment Not on file Procedures Procedure Name Priority Date/Time Associated Diagnosis [...] HIGH RISK HPV Routine 02/25/2022 9:11 AM MASONRY INSTRUCTOR Encounter for visit HEPATITIS C ANTIBODY Routine 07/18/2021 10:36 AM CDT Encounter for supervision of normal first in first trimester 10 weeks gestation of from Last 3 Months or Most Recently Relevant to Health Maintenance Results * N. gonorrhoeae/C. trachomatis Amplification Urine (10/01/2024 2:19 PM CDT) Pathologist [facility] C. trachomatis Not Detected [facility] Comment:Testing performed by : [facility], [address] [place]., [address] N. gonorrhoeae Not Detected [facility] Comment: Interpretive Data This assay detects Chlamydia trachomatis and Neisseria gonorrhoeae by nucleic acid amplification testing (NAAT). This assay has been cleared by the [place] Food and Drug administration. The performance characteristics of this test have been verified by the [facility] Molecular Infectious Disease laboratory. The performance characteristics of this test have not been evaluated in individuals less than 14 years of age. Current Interpretive Data was last revised on 2023. Testing performed by: [facility], [address] [place]., [address] Urine (None) 10/01/2024 2:19 PM CDT 10/02/2024 12:22 AM CDT Marianne Fischer NP LAB MICROBIOLOGY - [facility] ORDERABLES Final Result [facility] [address] [place] [address] [facility] * Vaginitis panel Vaginal (10/01/2024 2:19 PM CDT) [facility] Bacterial Vaginosis Not Detected Not Detected Comment:A negative result do es not preclude a possible infection. Results should be considered in conjunction with clinical presentation to determine the disease status. Bhavna group Not Detected Not Detected [facility] Bhavna glabrata/ krusei Not Detected Not Detected [facility] Trichomonas DNA Not Detected Not Detected [facility] Vaginal 10/01/2024 2:19 PM CDT 10/01/2024 2:59 PM CDT Narrative [facility] - 10/01/2024 4:12 PM CDT The CepHopscotchid Xpert Xpress MVP test detects DNA targets [...] this test have been verified by the [facility]. Marianne Fischer NP LAB MICROBIOLOGY - GENER AL ORDERABLES Final Result Performing Organization Address [facility] Co de Phone Number RADHAMESPALMIRA VASQUEZ [address] [place] [address] [facility] * Urine culture Urine, clean voided (10/01/2024 2:19 PM CDT) Report Final Report: Less than 100,000 colonies/mL (clinically insignificant growth based on current clinical standards) Comment:Testing performed by : [facility], [address] [place]., [address] Organism (CLINICALLY INSIGNIFICANT GROWTH TRACIE Urine, clean voided 10/01/2024 2:19 PM CDT 10/01/2024 4:11 PM CDT Narrative TRACIE VASQUEZ - 10/02/2024 4:56 PM CDT Testing performed by [facility] Microbiology Laboratory ([phone]) Marianne Fischer NP LAB MICROBIOLOGY - GENER AL ORDERABLES Final Result Performing Organization Address [facility] de Phone Number TRACIE PEDRO [address] ([address]) [place] [address] * (ABNORMAL) POCT urinalysis dipstick (10/01/2024 11:08 AM CDT) Color, Urine, POC Yellow Clarity, ur, POC Clear Clear Glucose, ur, POC Negative Negative Bilirubin, ur, POC Negative Negative Ketones, ur, POC Negative Negative Specific [place], POC 1.020 1.003 - 1.030 Blood, ur, POC Negative Negative pH, ur, POC 8.5(A) 5.0 - 8.0 Protein, ur, POC Negative Negative Urobilinogen, urine, POC 0.2 0.2 - 1.0 mg/dL Nitrite, ur, POC Negative Negative Leukocytes, ur, POC Negative Negative Lot Number [id number] Urine 10/01/2024 11:0 8 AM CDT us Marianne Fiscehr NP POINT OF CARE TEST ORDER JESSICA [...] eh posterior cul de sac. us Kaylin Ellsworth MD IM US PROCEDU RES Final Result * Differential, [...] 3 AM CDT 07/27/2024 12:53 PM CDT us Ratna Carrillo NP LAB BLOOD ORDERABLES Final Re sult TRACIE JONES ([place]) 1 [facility] [place] [address] * Thyroid Function [place] (07/27/2024 11:03 AM CDT) TSH 0.53 0.30 - 4.20 mcIUnit/mL Blood 07/27/2024 11:0 3 AM CDT 07/27/2024 12:53 PM CDT Ratna Carrillo NP LAB BLOOD ORDERABLES Final Re sult Performing Organization Address [facility] Co de Phone Number TRACIE JONES ([place]) 1 [facility] [place] [address] * Iron profile w/ IBC (07/27/2024 11:03 AM CDT) Pathologist [facility] Iron 106 35 - 145 mcg/dL TIBC 253 250 - 400 mcg/dL [facility] ([place]) Transferrin saturation 42 20 - 50 % [facility] KAREN ([place]) Blood 07/27/2024 11:0 3 AM CDT 07/27/2024 12:53 PM CDT Ratna Carrillo NP LAB BLOOD ORDERABLES Final Re sult Performing Organization Address [facility]/ZIP Co de Phone Number TRACIE JONES ([place]) 1 [facility] [place] [address] * CBC with auto differential (07/27/2024 11:03 AM CDT) WBC 4.40 3.80 - 9.90 K/cumm Hgb 12.1 11.9 - 15.5 g/dL [facility] ([place]) Hct 36.5 35.6 - 45.5 % [facility] ([place]) Plt 196 150 - 400 K/cumm [facility] ([place]) MPV 11.6 9.1 - 12.3 fL [facility] ([place]) RBC 3.92 3.90 - 5.20 M/cumm [facility]IE [facility] ([place]) MCV 93.1 81.3 - 96.4 fL [facility] ([place]) MCH 30.9 27.1 - 33.3 pg [facility] ([place]) MCHC 33.2 32.3 - 35.7 g/dL [facility] ([place]) RDW CV 12.3 11.1 - 14.9 % [facility] ([place]) RDW SD 41.6 35.7 - 48.1 fL [facility] ([place]) NRBC abs 0.00 0.00 - 0.01 K/cumm [facility] ([place]) Blood 07/27/2024 11:0 3 AM CDT 07/27/2024 12:53 PM CDT us Ratna Carrillo NP LAB BLOOD ORDERABLES Final Re sult Performing Organization Address City/[facility]/ZIP Co de Phone Number [facility] ([place]) 1 [facility] [address] ([address]) [place] [address] * Infection Prevention VRE Culture Stool (07/19/2024 12:15 PM CDT) Report Final Report: Negative Comment:Testing performed by : [facility], [address] [place] [address] Stool 07/19/2024 12:1 5 PM CDT 07/20/2024 1:32 AM CDT Narrative [facility] ([place]) - 07/22/2024 7:06 AM CDT Specimen received in a sterile container. Surveillance culture for Infection Prevention purposes only; results indicate colonization, not infection requiring treatment. Testing performed by [facility] Microbiology Laboratory ([phone]). us Kaylin Ellsworth MD LAB MICROBIOLO GY - GENERAL ORDERABLES Final Result [facility] ([place]) [address] [facility] [address] ([address]) [place] [address] * Pap with reflex to High Risk HPV (02/25/2022 9:11 AM MASONRY INSTRUCTOR) CLINICAL INFORMATION: Jose Rafael SesayMoreno Ellis Comment: LMP Jose Rafael SesayMoreno Ellis Comment:RECENT Previous Pap Jose Rafael SesayNedMeera andres Ellis Comment:NONE GIVEN Prev. Bx Jose Rafael SesayMoreno Ellis Comment:NONE GIVEN SOURCE: Jose Rafael LázaroMoreno Ellis Comment:Cervix, Endocervix Pap, specimen adequacy Jose Rafael SesayMoreno Ellis Comment: Satisfactory for evaluation. Endocervical/transformation zone component present. HPV interp Jose Rafael SesayoMreno Ellis Comment:Negative for intraep ithelial lesion or malignancy. COMMENTS Jose Rafael SesayMoreno Ellis Comment: This Pap test has been evaluated with computer assisted technology. Process Inspector Clint st SesayMoreno Ellis Comment: MLO, CT(ASCP) CT screening location: [place] [address] [address] [place] [address] Comment Jose Rafael SesayMoreno Ellis Comment: EXPLANATORY NOTE: The Pap is [...] information. Thin prep (None) 02/25/2022 9:11 AM MASONRY INSTRUCTOR 02/26/2022 5:36 AM MASONRY INSTRUCTOR Jaleel Chaparro MD LAB CYTOLOGY ORDERABLES Fi nal Result [facility] [address] [place] [address] * Hepatitis C antibody (07/18/2021 10:36 AM CDT) Hep C Ab Nonreactive Nonreactive TRACIE MURDOCK) Comment: Interpretive Data Nonreactive: Antibodies to HCV [...] last revised on 2019. Testing performed by: [facility], [address] [place] [address], [place]., [address] Blood 07/18/2021 10:3 6 AM CDT 07/18/2021 2:48 PM CDT us Karen Arce NP LAB MICROBIOLOGY - GENERA L ORDERABLES Final Result [facility]IE [facility] ([place]) 1 [facility] Department [place] [address] from Last 3 Months or Most Recently Relevant to Health Maintenance Insurance [employer] Address: [facility] [id number] [place] [address] [facility] CHOICE PLUS [facility] CHOICE PLUS [facility] [employer] Address: [address] [place] [address] Advance Directives For more information, please contact: [phone] * Full Code (Latest Code Status on File) Date Activated Date Inactivated Comments 07/02/2024 4:48 AM 07/04/2024 7:19 PM * Full Code Date Activated Date Inactivated Comments 01/22/2022 6:52 AM 01/24/2022 5:24 PM Full CPR in case of cardiopulmonary arrest Care Teams Recreation Facility Manager Relationship Specialty Start Date End Date Ratna Carrillo NP [address] [address] PCP - General Family Medicine 08/25/24 Jaleel Chaparro MD [address] [place] [address] [address] [place] [address] Staff Nurse Midwife Obstetrics and Gynecology 01/24/22
--- OUTSIDE RECORDS SUMMARY | 2024-10-17 18:01 | XMS_ITS | Encounter Summary ---
Author Organization [facility] Address [address] [facility] [place] [address] Phone Care Team Providers Care Movie Theater Manager Name Role Phone Lisbet Argueta MD Primary Care Provider [phone] Stephenie Rousseau DO Primary Care Provider [phone] Encounter Details Date Type Department Care Team (Late st Contact Info) Description 01/29/2021 Transcribe [facility] 1 [place] [address] Nancy Selby, BUTANE COMPRESSOR OPERATOR, EXHIBITS CURATOR [address] [facility] [address] GONZALEZ [address] [place] [address] Social History Tobacco Use Types Packs/Day Years Used Date Smoking Tobacco: Never Smokeless Tobacco: Never Alcohol Use Standard Drinks/Week Comments No 0 (1 standard drink = 0.6 oz pur e alcohol) Comments No Sex and Gender Information Value Date Recorded Sex Assigned at Not on file Legal Sex Female 10:45 PM CDT Gender Identity Not on file Sexual Orientation Not on file documented as of this encounter Plan of Treatment Not on file documented as of this encounter Visit Diagnoses Not on filedocumented in this encounter Care Teams Movie Theater Manager Relationship Specialty Start Date End Date Lisbet Argueta MD [address] [facility] [address] [place] [address] PCP - General Pediatrics 12/03/15 08/06/22 Stephenie Rousseau DO [address] [facility] [place] [address] PCP - General Family Medicine 08/07/22 documented as of this encounter
--- NOTE | 2024-10-17 18:02 | ED.SKABFB ---
HPI - Skin/Abscess/Foreign Bdy General Chief complaint: Skin/Abscess/Foreign Body Stated complaint: poss staff on both legs Time Seen by Provider: 10/17/24 18:09 Source: patient and RN notes reviewed Mode of arrival: ambulatory Limitations: no limitations History of Present Illness HPI narrative: 23-year-old female presents with concern for staph infection. Reports she had spot on the back of her left leg that she was started on Augmentin for on Thursday. She reports the area has gotten worse and has a dark colored center and has purulence drainage. She has history of staph infection. MD complaint: abscess/boil Related Data Home Medications ?Medication ?Instructions ?Recorded ?Confirmed ?Last Taken ?Type citalopram 20 mg tablet mg 11/22/22 Unknown History norethindrone 1.5 mg-ethinyl tablet 11/22/22 Unknown History estradiol 30 mcg(21)/iron 75 mg(7) tablet ( (28)) Allergies Allergy/AdvReac Type Severity Reaction Status Date / Time No Known Allergies Allergy Verified 06/18/22 17:43 Review of Systems Review of Systems: CONSTITUTIONAL: Denies malaise, chills, sweats, or fever. EYES: Denies redness, or discharge. ENT: Denies rhinorrhea, congestion, swollen lips, swollen tongue CARDIOVASCULAR: Denies chest pain, palpitations, or edema. RESPIRATORY: Denies cough or dyspnea. GASTROINTESTINAL: Denies abdominal pain, nausea, vomiting SKIN: Reports a raised infected area on the back of her left leg MUSCULOSKELETAL: Denies joint pain or myalgia. NEUROLOGIC: Denies headache. All systems reviewed & are unremarkable except as noted in HPI and below PMFSH Comments At time of signature, agree with nursing past medical, surgical, social and family history. There is no relevant family history pertinent to the presenting complaint Exam Narrative: GENERAL: Well-appearing, well-nourished, and in no acute distress. HEAD: Normocephalic, atraumatic. EYES: PERRLA, conjunctivae clear, and EOMI. ENT: Mucous membranes moist. Oropharynx without edema, erythema or lesions. NECK: Supple. No lymphadenopathy CHEST: Clear to auscultation. No respiratory distress. HEART: Regular rate and rhythm. SKIN: Warm, dry. Approximately he 1.5 cm raised erythematous area with scabbed center noted to the back of the left lower leg without purulent drainage or fluctuation. No surrounding erythema noted. NEURO: Alert and oriented x3. PSYCH: Normal mood and affect Course Course Emergency Course: Patient is aware of diagnosis, understands and agrees to treatment plan. Anticipatory guidance given. Patient agrees to follow-up as directed and is aware of reasons to seek care at the emergency department. Portions of this record may have been created with voice recognition software Level of Care: Express Care Visit Vital Signs Vital signs: Reviewed. MDM - Skin/Abscess/Foreign Bdy MDM Narrative Medical decision making narrative: Does not appear at this time to be erythema multiforme, bullous, SJS, TEN; no evidence at this time to suggest RMSF, endocarditis or Lyme disease; patient looks well, nontoxic and is tolerating oral intake; no neurologic signs or symptoms; no headache, photophobia or neck pain; afebrile; appropriate for initial outpatient treatment; discussed the importance of follow-up, patient agrees; question, viral exanthema, contact dermatitis, allergic dermatitis, eczema, urticaria, [ xx ]. No soft palate or uvula edema, no tongue, lip edema or other mucosal involvement, no respiratory compromise, no stridor, no wheezing, no wheezing, no history of syncope, no hypotension, no nausea, vomiting, or diarrhea. Instructed patient to go to nearest ER immediately for any worsening symptoms including but not limited to: fever, spreading rash, pain, sore throat, headache, dizziness, chest pain, trouble breathing, or any symptoms concerning to the patient. Critical Care Time Critical Care Time Critical Care Time: No Discharge Plan Discharge Clinical Impression: Boil Patient Disposition: Home Condition: Stable Instructions: Warm Compress or Soak (ED) Additional Instructions: Please follow up with your Primary Care Doctor within 48-72 hours - call for an appointment. Rest and elevate affected area; apply moist heat 3-4 times daily for 10-15 minutes. Take Motrin 600mg every 8 hours with food for pain. Please take Antibiotics as directed. If you experience any worsening redness, swelling, streaking (red lines), fever or chills please go to the ER Patient Language: Salvadorean Prescriptions: New clindamycin HCl 300 mg capsule 300 mg PO Q8H 7 Days Qty: 21 0RF Discontinued amoxicillin-pot clavulanate 875-125 mg tablet No Action norethindrone-e.estradiol-iron [June FE 1.5/30 (28)] 1.5 mg-30 mcg (21)/75 mg (7) tablet citalopram 20 mg tablet Follow-up/Referrals: Gerardo,Ratna Gutierrez, [employer] [Primary Care Provider] - Time of Disposition: 18:18
[2024-10-17 18:06] VITALS: BP 116/70; PULSE 99; RESP 16; TEMP 36.8; O2SAT 100
== END 2024-10-17 18:23 | disposition home or self-care (01) ==
PROVIDERS: Emergency Provider Nurse Practitioner; PCP Nurse Practitioner Family
DX: L02.426 Furuncle of left lower limb (principal)
CPT/HCPCS: 99213; G0463